=== PATIENT | male | born 1970 | race Caucasian/White ===

== ENCOUNTER 2017-11-13 10:52 | Emergency (ER) | payer BC ==
[2017-11-13] MEDS ORDERED: DIPH,PERTUS(ACELL)TETVAC-LF 0.5 ML VIAL IM ONE (12:00)
[2017-11-13] MEDS ORDERED: PROPARACAINE 0.5% OPHTH DROPS 15 ML BTL LEFT EYE STA (12:00)
--- NOTE | 2017-11-13 12:11 | ED ---
General Adult HPI - General Chief complaint: Eye Problems Stated complaint: foreign body in left eye Time Seen by Provider: 11/13/17 11:42 Source: patient, RN notes reviewed Mode of arrival: ambulatory Limitations: no limitations - History of Present Illness Initial comments: Patient for 47-year-old male presented to the emergency room today with a chief complaint of possible foreign body to the left eye. Patient does admit that he was in the shower washing up and he believes something fell into his eye. Patient states feels a piece of metal. 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 Patient states unsure of his tetanus status. He denies any other complaints or symptoms at this time. Patient denies any recent fever, chills, shortness of breath, chest pain, back pain, abdominal pain, nausea or vomiting, headaches or visual changes, or any other complaints. - Related Data Previous Rx's Medication Instructions Recorded Tobramycin 0.3% Ophth Soln [Tobrex 1 - 2 drop BOTH EYES Q4H 7 Days ml 11/13/17 0.3% Ophth Soln] Allergies Allergy/AdvReac Type Severity Reaction Status Date / Time No Known Allergies Allergy Verified 11/13/17 11:14 Review of Systems ROS Statement: Those systems with pertinent positive or pertinent negative responses have been documented in the HPI. ROS Other: All systems not noted in ROS Statement are negative. Past Medical History Past Medical History: No Reported History History of Any Multi-Drug Resistant Organisms: None Reported Past Surgical History: No Surgical Hx Reported Past Psychological History: No Psychological Hx Reported Smoking Status: Current every day smoker Past Alcohol Use History: None Reported Past Drug Use History: None Reported General Exam - General Exam Comments Initial Comments: General: The patient is awake and alert, in no distress, and does not appear acutely ill. Eye: Pupils are equal, round and reactive to light, extra-ocular movements are intact. No nystagmus. Redness to the left conjunctiva with watery discharge. Ears, nose, mouth and throat: There are moist mucous membranes and no oral lesions. Neck: The neck is supple, there is no tenderness or JVD. Musculoskeletal: Normal ROM, no tenderness. Strength 5/5. Sensation intact. Pulses equal bilaterally 2+. Neurological: A&O x 3. CN II-XII intact, There are no obvious motor or sensory deficits. Coordination appears grossly intact. Speech is normal. Skin: Skin is warm and dry and no rashes or lesions are noted. Psychiatric: Cooperative, appropriate mood & affect, normal judgment. Limitations: no limitations Course Vital Signs 11/13/17 11:14 Temperature 97.4 F L Pulse Rate 81 Respiratory 20 Rate Blood Pressure 128/91 O2 Sat by Pulse 100 Oximetry Medical Decision Making - Medical Decision Making Patient's left eye was anesthetized locally with proparacaine. This didn't relieve the symptoms. Patient's left eye was then stained with forcing and checked with Wood's lamp showing small corneal abrasion 9 o'clock position. Patient's no sign of foreign body. Lids inverted. Patient's pressure was also checked and was 8 here in the emergency room. Patient will be started on antibiotic drops and advised follow-up with boy's adviser over the next 2 days if symptoms not improved. Disposition Clinical Impression: Corneal abrasion Disposition: HOME SELF-CARE Condition: Good Instructions: Corneal Abrasion (ED) Additional Instructions: Please use antibiotic drops as prescribed follow-up boy's adviser in 2 days of symptoms have not completely resolved. Prescriptions: Tobramycin 0.3% Ophth Soln [Tobrex 0.3% Ophth Soln] 1 - 2 drop BOTH EYES Q4H 7 Days ml Is patient prescribed a controlled substance at d/c from ED?: No Referrals: None,Stated [Primary Care Provider] - 1-2 days Charlie Stevenson MD [STAFF PHYSICIAN] - 1-2 days Time of Disposition: 12:35
[2017-11-13 12:51] VITALS: BP 121/81; PULSE 66; RESP 19; TEMP 97.7
== END 2017-11-13 12:46 | disposition home or self-care (01) ==
LOC: EC 10:52
DX: S05.02XA Injury of conjunctiva and corneal abrasion without foreign body, left eye, initial encounter (principal); F17.200 Nicotine dependence, unspecified, uncomplicated; Z23 Encounter for immunization; W22.8XXA Striking against or struck by other objects, initial encounter; Y93.E1 Activity, personal bathing and showering
CPT/HCPCS: 90471; 90715; 99283

== ENCOUNTER 2019-03-07 10:04 | Emergency (ER) | payer BC, OTHER ==
[2019-03-07 10:10] VITALS: BP 135/85; PULSE 82; RESP 18; TEMP 98.6
[2019-03-07] MEDS ORDERED: ERYTHROMYCIN 5 MG/GM OPHTH OINT 3.5 GM TUBE BOTH EYES STA (10:10)
[2019-03-07] MEDS ORDERED: PROPARACAINE 0.5% OPHTH DROPS 15 ML BTL BOTH EYES STA (10:11)
[2019-03-07] MEDS ORDERED: DIPH,PERTUS(ACELL)TETVAC-LF 0.5 ML VIAL IM ONE (10:21)
--- NOTE | 2019-03-07 10:32 | ED ---
General Adult HPI - General Chief complaint: Eye Problems Stated complaint: FB in eye-[facility] Time Seen by Provider: 03/07/19 10:06 Source: patient, RN notes reviewed Mode of arrival: ambulatory Limitations: no limitations - History of Present Illness Initial comments: 48-year-old male without any significant past medical history presents to the emergency department for a chief complaint of corneal foreign body. Patient states that this happened 5 days ago. 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 Patient is unsure what this is. Unsure if it could be metal. Patient states his eye just feels somewhat irritated but denies any pain. States he looked in and saw a small objects. Denies any visual changes. Does admit his eyes becoming more sensitive to light.Patient has no other complaints at this time including shortness of breath, chest pain, abdominal pain, nausea or vomiting, headache, or visual adelina nges. - Related Data Previous Rx's Medication Instructions Recorded Erythromycin Ophth Oint [Romycin 1 applic RIGHT EYE QID 7 Days #1 03/07/19 Ophth Oint] tube Allergies Allergy/AdvReac Type Severity Reaction Status Date / Time No Known Allergies Allergy Verified 03/07/19 10:13 Review of Systems ROS Statement: Those systems with pertinent positive or pertinent negative responses have been documented in the HPI. ROS Other: All systems not noted in ROS Statement are negative. Past Medical History Past Medical History: No Reported History History of Any Multi-Drug Resistant Organisms: None Reported Past Surgical History: No Surgical Hx Reported Past Psychological History: No Psychological Hx Reported Smoking Status: Current every day smoker Past Alcohol Use History: None Reported Past Drug Use History: None Reported General Exam Limitations: no limitations General appearance: alert, in no apparent distress Head exam: Present: atraumatic, normocephalic, normal inspection Eye exam: Present: PERRL, EOMI, other (There is a small corneal foreign body at 5:00 in the left eye). Absent: scleral icterus, conjunctival injection, ramiro orbital swelling ENT exam: Present: normal exam, mucous membranes moist Neck exam: Present: normal inspection, full ROM. Absent: tenderness, meningis mus, lymphadenopathy Respiratory exam: Present: normal lung sounds bilaterally. Absent: respiratory distress, wheezes, rales, rhonchi, stridor Cardiovascular Exam: Present: regular rate, normal rhythm, normal heart sounds. Absent: systolic murmur, diastolic murmur, rubs, gallop, clicks Neurological exam: Present: alert Psychiatric exam: Present: normal affect, normal mood Course Vital Signs 03/07/19 10:05 Temperature 98.6 F Pulse Rate 82 Respiratory 18 Rate Blood Pressure 135/85 O2 Sat by Pulse 95 Oximetry Medical Decision Making - Medical Decision Making 48-year-old male presents to the emergency department for a chief complaint of corneal foreign body. This is at about 5:00 in the left eye and has been there for about 5 days. Denies any visual changes. Denies any significant pain in the left eye but does admit to mild irritation. States he saw foreign body so came in today. The eye was numbed with proparacaine. A Q-tip was used to gently remove the foreign body without any difficulty. I do not see evidence of a rust ring at this time. I did stain the eye with fluorescein stain and used a Wood's lamp to ensure a negative Shonna sign. Although I do not see a rust ring, given length of time object was in the cornea I do recommend the patient sees ophthalmology to ensure the absence of a rust ring. He does agree with this. His tetanus is up-to-date. He will use erythromycin ointment as he does not wear contacts. He'll return if he has any worsening symptoms. Disposition Clinical Impression: Corneal foreign body Disposition: HOME SELF-CARE Condition: Good Instructions (If sedation given, give patient instructions): Eye Foreign Body (ED) Additional Instructions: Please use antibiotic ointment 4 times a day for 7 days. Please follow-up with ophthalmology in 1-2 days to ensure there is no rust in the eye. Please return to the emergency department if you have any worsening symptoms. Prescriptions: Erythromycin Ophth Oint [Romycin Ophth Oint] 1 applic RIGHT EYE QID 7 Days #1 tube Is patient prescribed a controlled substance at d/c from ED?: No Referrals: Vikram Marie MD [STAFF PHYSICIAN] - 1-2 days Time of Disposition: 10:31
== END 2019-03-07 11:20 | disposition home or self-care (01) ==
LOC: EC 10:04
DX: T15.02XA Foreign body in cornea, left eye, initial encounter (principal); F17.200 Nicotine dependence, unspecified, uncomplicated; Y92.69 Other specified industrial and construction area as the place of occurrence of the external cause; Y99.0 Civilian activity done for income or pay
CPT/HCPCS: 99283